=== PATIENT | male | born 1945 | race Caucasian/White ===

== ENCOUNTER → 2017-03-26 | Outpatient (CLI) | payer MEDICARE, OTHER ==
[~2017-03-26] MED LIST: ASPI-630 PO; SIMV10TA PO; ZOLPIDEM 5 MG TABLET. PO ONE
--- NOTE | 2017-03-27 10:13 | SLEEP ---
DATE OF STUDY: 03/26/2017 ATTENDING PHYSICIAN: Dr. Nae Nava. The patient is 71 years old who weighs 220 pounds with a BMI of 32. The patient's [place] score was 9. Sleep study was performed at [facility]. This was a diagnostic study. During the night study, the patient spent 421 minutes in bed and slept for 292 minutes with a sleep efficiency of 69%. Sleep latency was 27 minutes with a REM latency of 211 minutes. Overall, sleep architecture showed normal stage 1 sleep, increased stage 2 sleep, normal slow wave and reduced REM sleep. During the night study, the patient had 66 obstructive apneas, 16 hypopneas, 1 mixed and 1 central apneas. The patient's apnea-hypopnea index was 17 per hour, supine index 25 per hour and a REM index of 5 per hour. EKG monitoring revealed normal sinus rhythm. Average heart rate was 81 beats per minute. No sustained arrhythmias were observed. Mean oxygen saturation remained around 97%, with the lowest of 86%. 13% of time oxygen saturation remained between 80% and 89%. PLMs were seen at index of 8 per hour and 3 per hour caused EEG arousals. There was some suboptimal flow signal and the patient's sleep apnea may have been underestimated. CPAP was not initiated. IMPRESSION: 1. Moderate sleep apnea-hypopnea syndrome at an AHI of 17 per hour with a supine AHI of 25 per hour. 2. Nocturnal hypoxia secondary to obstructive sleep apnea. 3. Mild PLMs without any significant EEG arousals. This does not need to be treated. RECOMMENDATIONS: 1. The patient would benefit from return to the Sleep Lab for CPAP titration study. 2. Alternate treatment option would include oral appliance as recommended by the dentist. 3. Avoid [employer] depressants. 4. Cautioned regarding driving until symptoms of sleep apnea resolve with the above recommendations. EMMANUEL THOMAS MD DR: HOUSTON/carla JOB#: [id number] / [id number] NAE Márquez MD
== END | disposition home or self-care (01) ==
LOC: SLPLAB 18:38
PROVIDERS: ATTEND Family Medicine
DX: G47.33 Obstructive sleep apnea (adult) (pediatric) (principal)
CPT/HCPCS: 95810